=== PATIENT | male | born 1995 | race Caucasian/White ===

== ENCOUNTER 2016-11-24 18:29 | Emergency (ER) | payer BC ==
[~2016-11-24] VITALS: Ht 177.8 cm; Wt 104.5 kg
[2016-11-24 18:49] VITALS: BP 143/82; PULSE 82; TEMP 98.3
[2016-11-24] MEDS ORDERED: NORCO 325 MG-51 TAB PO (20:57)
== END 2016-11-24 21:14 | disposition home or self-care (01) ==
LOC: COL.ER 18:29
DX: S62.326A Displaced fracture of shaft of fifth metacarpal bone, right hand, initial encounter for closed fracture (principal); Y04.2XXA Assault by strike against or bumped into by another person, initial encounter; Y92.009 Unspecified place in unspecified non-institutional (private) residence as the place of occurrence of the external cause